=== PATIENT | male | born 1995 | race Caucasian/White ===

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

== ENCOUNTER 2017-02-04 08:40 | Emergency (ER) | END 2017-02-04 09:11 | disposition home or self-care (01) | DX: J06.9 Acute upper respiratory infection, unspecified (principal) ==

== ENCOUNTER 2017-06-27 10:49 | Emergency (ER) | END 2017-06-27 13:00 | disposition home or self-care (01) ==